=== PATIENT | female | born 1965 | race Caucasian/White ===

== ENCOUNTER 2017-10-26 22:40 | Emergency (ER) | payer SELFPAY ==
[~2017-10-26] VITALS: Ht 165.1 cm; Wt 99.8 kg
[~2017-10-26 22:40] MED LIST: ONDA4TAB97 PO; OXYC-865 PO; TAMS0.4C25 PO
--- NOTE | 2017-10-26 22:50 | ER Report ---
History and Physical Time Seen By MD: 22:49 HPI/ROS CHIEF COMPLAINT: Left flank pain HISTORY OF PRESENT ILLNESS: 52-year-old female with history of kidney stones here with acute onset sharp severe left flank pain feeling similar to prior stones associated with possible UTI. No fevers chills nausea vomiting no abdominal pain past surgical history includes kidney stenting and straightening of a tortuous ureter per patient report. No other concerns or complaints today. Onset of pain was around 8 PM and has been worsening not intermittent. REVIEW OF SYSTEMS: Constitutional: No fever, no chills. Eyes: No discharge. ENT: No sore throat. Cardiovascular: No chest pain, no palpitations. Respiratory: No cough, no shortness of breath. Gastrointestinal: No abdominal pain, no vomiting. Genitourinary: No hematuria. Musculoskeletal: No back pain. Skin: No rashes. Neurological: No headache. Allergies: Coded Allergies: No Known Drug Allergies (Unverified , 10/26/17) Home Meds Active Scripts Tamsulosin Hcl (FLOMAX) 0.4 Mg Cap.er.24h, 0.4 MG PO QHS for relaxation of the ureter, #20 CAP Prov:JAKUB GUZMAN DO 01/22/17 Ondansetron Hcl (ZOFRAN) 4 Mg Tablet, 4 MG PO Q6H Y for NAUSEA/VOMITING, #1012 Prov:JAKUB GUZMAN DO 01/22/17 Oxycodone Hcl/Acetaminophen (PERCOCET 5-325 MG TABLET) 1 Each Tablet, 1-2 TAB PO Q4-6H Y for PAIN, #20 Prov:JAKUB GUZMAN DO 01/22/17 Hx Substance Use Disorder: No Hx Alcohol Use: No Constitutional Vital Sign - Last 24 Hours 10/26/17 10/26/17 10/26/17 10/26/17 22:40 22:48 22:49 22:52 Temp 97.6 Pulse ??? 71 Resp 24 B/P (MAP) 194/124 208/133 (158) 194/124 (147) Pulse Ox 97 O2 Delivery Room Air 10/26/17 10/26/17 10/26/17 10/26/17 22:55 23:00 23:10 23:20 Pulse ??? 69 B/P (MAP) 189/146 (160) Pulse Ox 97 97 O2 Flow Rate 2.0 10/26/17 10/26/17 10/26/17 10/26/17 23:25 23:30 23:40 23:45 Pulse 73 77 78 B/P (MAP) 186/119 (141) Pulse Ox 94 93 93 10/27/17 10/27/17 10/27/17 10/27/17 00:00 00:15 00:30 00:46 Pulse ??? B/P (MAP) 159/106 (123) 167/113 (131) 162/101 (121) 10/27/17 01:00 B/P (MAP) 168/97 (120) Physical Exam General Appearance: The patient is alert, has no immediate need for airway protection and no signs of toxicity. Patient appears to be in severe distress due to pain Eyes: Pupils equal and round no pallor or injection. ENT, Mouth: Mucous membranes are moist. Respiratory: There are no retractions, lungs are clear to auscultation. Cardiovascular: Regular rate and rhythm. No murmurs gallops or rubs Gastrointestinal: Abdomen is soft and non tender, no masses, bowel sounds normal. Left-sided CVA tenderness is mild right negative Neurological: Normal Skin: Warm and dry, no rashes. Musculoskeletal: Neck is supple non tender. Extremities are nontender, nonswollen and have full range of motion. No edema DIFFERENTIAL DIAGNOSIS: After history and physical exam differential diagnosis was considered for renal stone, AAA, aortic dissection, polynephritis, no signs of sepsis or other dangerous process. Medical Decision Making Data Points Result Diagram: 10/26/17225310/26/172253 Laboratory Hematology Test 10/26/17 22:54 Red Blood Count 6.15 M/uL (4.17-5.56) Mean Corpuscular Volume 79.2 fL (80.0-96.0) Mean Corpuscular Hemoglobin 26.8 pg (26.0-33.0) Mean Corpuscular Hemoglobin Concent 33.8 g/dL (32.0-36.0) Red Cell Distribution Width 14.4 % (11.5-14.5) Mean Platelet Volume 8.7 fL (7.2-11.1) Neutrophils (%) (Auto) 44.4 % (39.4-72.5) Lymphocytes (%) (Auto) 42.7 % (17.6-49.6) Monocytes (%) (Auto) 8.1 % (4.1-12.4) Eosinophils (%) (Auto) 3.3 % (0.4-6.7) Basophils (%) (Auto) 1.5 % (0.3-1.4) Nucleated RBC Relative Count (auto) 0.1 /100WBC Neutrophils # (Auto) 4.6 K/uL (2.0-7.4) Lymphocytes # (Auto) 4.5 K/uL (1.3-3.6) Monocytes # (Auto) 0.8 K/uL (0.3-1.0) Eosinophils # (Auto) 0.3 K/uL (0.0-0.5) Basophils # (Auto) 0.2 K/uL (0.0-0.1) Nucleated RBC Absolute Count (auto) 0.01 K/uL Urine Color Yellow Urine Clarity Cloudy Urine pH 5.0 pH (4.8-9.5) Urine Specific [place] 1.028 Urine Protein 100 mg/dL (NEGATIVE) Urine Glucose (UA) Negative mg/dL (NEGATIVE) Urine Ketones Trace mg/dL (NEGATIVE) Urine Blood Large (NEGATIVE) Urine Nitrite Negative (NEGATIVE) Urine Bilirubin Small (NEGATIVE) Urine Urobilinogen 2.0 mg/dL (0.2-1.9) Urine Leukocyte Esterase Small (NEGATIVE) Urine RBC 1467 /HPF (0-2/HPF) Urine WBC 36 /HPF (0-5/HPF) Urine Squamous Epithelial Cells Many /LPF (</=FEW) Urine Bacteria Negative /HPF (NONE-FEW) Urine Mucus Few /HPF (NONE-FEW) Sodium Level 141 mmol/L (137-145) Potassium Level 3.9 mmol/L (3.5-5.0) Chloride Level 104 mmol/L (98-107) Carbon Dioxide Level 25 mmol/L (22-31) Blood Urea Nitrogen 18 mg/dl (7-18) Creatinine 0.90 mg/dl (0.52-1.04) Glomerular Filtration Rate Calc > 60.0 Random Glucose 114 mg/dl (75-110) Calcium Level 9.2 mg/dl (8.4-10.2) Total Bilirubin 0.5 mg/dl (0.2-1.3) Aspartate Amino Transf (AST/SGOT) 20 U/L (0-35) Alanine Aminotransferase (ALT/SGPT) 34 U/L (0-56) Alkaline Phosphatase 90 U/L (0-126) Total Protein 7.7 gm/dl (6.3-8.2) Albumin 4.2 g/dl (3.5-5.0) Lipase 51 U/L (23-300) Human Chorionic Gonadotropin, Qual Negative (NEGATIVE) Chemistry Test 10/26/17 22:54 White Blood Count 10.4 k/uL (4.5-11.0) Red Blood Count 6.15 M/uL (4.17-5.56) Hemoglobin 16.5 g/dL (12.0-16.0) Hematocrit 48.7 % (34.0-47.0) Mean Corpuscular Volume 79.2 fL (80.0-96.0) Mean Corpuscular Hemoglobin 26.8 pg (26.0-33.0) Mean Corpuscular Hemoglobin Concent 33.8 g/dL (32.0-36.0) Red Cell Distribution Width 14.4 % (11.5-14.5) Platelet Count 233 K/uL (150-450) Mean Platelet Volume 8.7 fL (7.2-11.1) Neutrophils (%) (Auto) 44.4 % (39.4-72.5) Lymphocytes (%) (Auto) 42.7 % (17.6-49.6) Monocytes (%) (Auto) 8.1 % (4.1-12.4) Eosinophils (%) (Auto) 3.3 % (0.4-6.7) Basophils (%) (Auto) 1.5 % (0.3-1.4) Nucleated RBC Relative Count (auto) 0.1 /100WBC Neutrophils # (Auto) 4.6 K/uL (2.0-7.4) Lymphocytes # (Auto) 4.5 K/uL (1.3-3.6) Monocytes # (Auto) 0.8 K/uL (0.3-1.0) Eosinophils # (Auto) 0.3 K/uL (0.0-0.5) Basophils # (Auto) 0.2 K/uL (0.0-0.1) Nucleated RBC Absolute Count (auto) 0.01 K/uL Urine Color Yellow Urine Clarity Cloudy Urine pH 5.0 pH (4.8-9.5) Urine Specific [place] 1.028 Urine Protein 100 mg/dL (NEGATIVE) Urine Glucose (UA) Negative mg/dL (NEGATIVE) Urine Ketones Trace mg/dL (NEGATIVE) Urine Blood Large (NEGATIVE) Urine Nitrite Negative (NEGATIVE) Urine Bilirubin Small (NEGATIVE) Urine Urobilinogen 2.0 mg/dL (0.2-1.9) Urine Leukocyte Esterase Small (NEGATIVE) Urine RBC 1467 /HPF (0-2/HPF) Urine WBC 36 /HPF (0-5/HPF) Urine Squamous Epithelial Cells Many /LPF (</=FEW) Urine Bacteria Negative /HPF (NONE-FEW) Urine Mucus Few /HPF (NONE-FEW) Glomerular Filtration Rate Calc > 60.0 Calcium Level 9.2 mg/dl (8.4-10.2) Total Bilirubin 0.5 mg/dl (0.2-1.3) Aspartate Amino Transf (AST/SGOT) 20 U/L (0-35) Alanine Aminotransferase (ALT/SGPT) 34 U/L (0-56) Alkaline Phosphatase 90 U/L (0-126) Total Protein 7.7 gm/dl (6.3-8.2) Albumin 4.2 g/dl (3.5-5.0) Lipase 51 U/L (23-300) Human Chorionic Gonadotropin, Qual Negative (NEGATIVE) Urinalysis Test 10/26/17 22:54 Urine Color Yellow Urine Clarity Cloudy Urine pH 5.0 pH (4.8-9.5) Urine Specific [place] 1.028 Urine Protein 100 mg/dL (NEGATIVE) Urine Glucose (UA) Negative mg/dL (NEGATIVE) Urine Ketones Trace mg/dL (NEGATIVE) Urine Blood Large (NEGATIVE) Urine Nitrite Negative (NEGATIVE) Urine Bilirubin Small (NEGATIVE) Urine Urobilinogen 2.0 mg/dL (0.2-1.9) Urine Leukocyte Esterase Small (NEGATIVE) Urine RBC 1467 /HPF (0-2/HPF) Urine WBC 36 /HPF (0-5/HPF) Urine Squamous Epithelial Cells Many /LPF (</=FEW) Urine Bacteria Negative /HPF (NONE-FEW) Urine Mucus Few /HPF (NONE-FEW) ED Course/Re-evaluation ED Course Plan of care was agreed upon prior orders placed Results were discussed the patient pain was controlled to 2 out of 10 blood pressure improved to acceptable range the patient agreed to outpatient follow- up all questions were answered and understood home medication use follow-up and reasons to return were discussed Decision to Disposition Date: Oct 27, 2017 Decision to Disposition Time: 01:25 Depart Departure Latest Vital Signs Vital Signs Date Time Temp Pulse Resp B/P (MAP) Pulse Ox O2 Delivery O2 Flow Rate FiO2 10/27/17 01:00 168/97 (120) 10/27/17 00:15 ??? 10/26/17 23:45 93 10/26/17 23:20 2.0 10/26/17 22:48 97.6 24 Room Air Impression: Primary Impression: Renal calculus, left Additional Impression: Hydronephrosis due to ureteral stricture Condition: Improved Disposition: HOME OR SELF-CARE New Scripts Oxycodone Hcl/Acetaminophen (PERCOCET 5-325 MG TABLET) 1 Each Tablet 1 EACH PO Q4H Y for PAIN, #12 TAB 0 Refills Prov: KARLO PHILIP MD 10/27/17 Ibuprofen/Diphenhydramine Cit (MOTRIN PM CAPLET) 1 Each Tablet 1 EACH PO every 6 hours for PAIN for 7 Days, #30 CALORIES Prov: KARLO PHILIP MD 10/27/17 Tamsulosin Hcl (FLOMAX) 0.4 Mg Cap.er.24h 0.4 MG PO QDAY, #14 CAP 0 Refills Prov: KARLO PHILIP MD 10/27/17 Patient Instructions: Kidney Stones (ED) Problem Qualifiers KARLO PHILIP MD Oct 26, 2017 22:50
[2017-10-26] MEDS ORDERED: NS(*) 0.9% 1000 ML BAG 1,000 ML IV ONE (23:05)
[2017-10-26] MEDS ORDERED: MORPHINE 10 MG/ML SYR IVP ONE (23:05)
[2017-10-26] MEDS ORDERED: KETOROLAC 30 MG/ML VIAL IVP ONE (23:05)
[2017-10-26] MEDS ORDERED: ONDANSETRON 4 MG/2 ML VIAL IVP ONE (23:05)
[2017-10-26 23:15] LABS: PLATELET COUNT, AUTOMATED 233 K/uL (150-450)
--- NOTE | 2017-10-27 00:47 | RADIOLOGY IMAGING REPORT ---
FACILITY: [facility] PATIENT NAME: Skyla Baird : 1965 MR: [id number] V: [id number] EXAM DATE: ORDERING PHYSICIAN: KARLO PHILIP TECHNOLOGIST: Location: [facility] [place] Patient: Skyla Baird : 1965 Visit/Account:[id number] Date of Sevice: 10/26/2017 ABDOMEN/PELVIS W/O CONTRAST HISTORY: Flank pain. History of renal stones. COMPARISON: 01/22/2017. TECHNIQUE: Axial images were obtained from the lung bases through the symphysis pubis without intrave nous contrast. Sagittal and coronal reformats were performed. One of the following dose optimization techniques was utilized in the performance of this exam: Autom ated exposure control; adjustment of the mA and/or kV according to the patient's size; or use of an i terative reconstruction technique. Specific details can be referenced in the facility's radiology CT exam operational policy. CONTRAST: None. FINDINGS: Lower chest: There is minimal atelectasis. There is a stable 3 mm left lower lobe pulmonary nodule on image 34. The stability for nearly a year suggests a benign process. Liver: Normal. Gallbladder/biliary: Normal. Pancreas: Normal. Spleen: Normal. Adrenals: Normal. Kidneys/ureters/bladder: There is a 5 x 4 x 5 mm obstructing calculus at the left ureteropelvic junct ion (axial image 108 and coronal image 100). There is moderate left hydronephrosis. There is mild per inephric stranding and stranding around the left renal pelvis. There is a nonobstructing 4 mm calculu s at the left lower kidney. There is persistent mild right hydronephrosis and dilation of the right renal pelvis with the transit ion at the ureteropelvic junction, suggesting a UPJ obstruction. There are developing calculi on the right. The bladder is normal. GI/mesentery/peritoneal cavity: There is no bowel obstruction. There is no wall thickening or pericol onic stranding. The appendix is normal. There is sigmoid and descending colon diverticulosis without diverticulitis. Vessels: No aneurysm. There is mild atherosclerosis of the aorta and of the right renal artery origin . There is mild atherosclerosis of the common and internal iliac arteries. Nodes: Normal. Pelvis: Uterus is absent. Ovaries are normal. Bones/vertebra/soft tissues: There is mild degenerative change of the spine. There is straightening o f the normal lumbar lordosis. No listhesis. IMPRESSION: 1. 5 mm obstructing calculus at the left ureteropelvic junction causes moderate left hydronephrosis. 2. There are nonobstructing bilateral renal calculi. 3. Findings suggest a right UPJ obstruction. There is mild right hydronephrosis, unchanged. Urology c onsult is recommended. These findings were discussed by phone with KARLO PHILIP on 10/27/2017 12:42 AM. Report Dictated By: Shakila Quinones at 10/27/2017 12:31 AM Report E-Signed By: Shakila Quinones at 10/27/2017 12:43 AM WSN:[id number]
[2017-10-27] MEDS ORDERED: cloNIDine HCL 0.1 MG TAB PO ONE (00:55)
[2017-10-27 01:00] VITALS: BP 168/97
[2017-10-27] MEDS ORDERED: TAMS0.4C25 PO (01:29)
[2017-10-27] MEDS ORDERED: IBUP1TAB84 PO (01:29)
[2017-10-27] MEDS ORDERED: OXYC-865 PO (01:29)
== END 2017-10-27 01:40 | disposition home or self-care (01) ==
LOC: ER 23:01
DX: N20.0 Calculus of kidney (principal); N13.1 Hydronephrosis with ureteral stricture, not elsewhere classified
CPT/HCPCS: 74176; 81001; 83690; 84703; 85025; 96361; 96374; 96375; 99283; J1885; J2270; J2405; J7030; 82040; 82247; 82310; 82374; 82435; 82565; 82947; 84075; 84132; 84155; 84295; 84450; 84460; 84520